=== PATIENT | female | born 1965 | race Caucasian/White ===

== ENCOUNTER 2017-04-15 22:18 | Emergency (ER) | payer BC ==
[~2017-04-15] VITALS: Ht 180.3 cm; Wt 113.8 kg
[~2017-04-15 22:18] MED LIST: CELEBREX200 MG PO; HYDROCHLOROTHIAZIDE PO; KADIAN30 MG PO; LYRICA PO; LYRICA150 MG PO; PERCOCET 7.5-31 EACH PO; PERCOCET 7.51 TABLET PO; PREDNISONE10 MG PO; SYNTHROID75 MCG PO; ZANAFLEX4 MG PO
[2017-04-15 22:59] LABS: HEMATOCRIT 41.5 % (36.0-46.0); MCH 29.8 PG (29.0-34.0); MCHC 33.3 G/DL (30.0-36.0); MCV 89.6 FL (83-99); MEAN PLAT.VOLUME 10.6 uM^3 (9.5-12.4); PLATELET COUNT 146 K/uL (156-360); RBC DIS.WIDTH-CV 13.8 % (11.8-14.6); RBC DIS.WIDTH-SD 45.6 % (39-53); RED BLOOD COUNT 4.63 M/uL (3.80-5.20); WHITE BLOOD COUNT 8.3 K/uL (4.1-10.2)
[2017-04-15 23:09] LABS: CHLORIDE 107 mEq/L (99-109); POTASSIUM 4.1 mEq/L (3.7-5.4); SODIUM 141 mEq/L (136-147)
[2017-04-15 23:11] LABS: GLUCOSE 109 mg/dL (70-99)
[2017-04-15 23:12] LABS: ANION GAP 13 MEQ/L (2-14)
[2017-04-15 23:13] LABS: TOTAL BILIRUBIN 0.3 mg/dL (0.0-1.0)
[2017-04-15 23:15] LABS: ALKALINE PHOSPHATASE 90 IU/L (3-129); GFR ESTIMATE (CALCULATED) > 59 mL/min/
[2017-04-15 23:16] LABS: UREA NITROGEN (BUN) 15 mg/dL (9-23)
[2017-04-15 23:40] LABS: LIPASE 14 U/L (1.0-51.0); QUANTITATIVE HCG < 4.0 MIU/ML
[2017-04-16 00:32] LABS: ADD MIUA? YES; BILIRUBIN NEGATIVE; BLOOD SMALL; COLOR YELLOW ((YELLOW)); GLUCOSE (STRIP) NEGATIVE; KETONES NEGATIVE; LEUKOCYTES SMALL; NITRITE POSITIVE; PROTEIN (STRIP) 30; SPECIFIC GRAVITY 1.019 (1.000-1.030); UROBILINOGEN 0.2 MG/DL (0.2-1.0)
[2017-04-16] MEDS ORDERED: PEPCID20 MG PO (00:44)
[2017-04-16] MEDS ORDERED: BACTRIM,SEPT1 TABLET PO (00:44)
[2017-04-16 00:51] LABS: BACTERIA 2+ /HPF; EPITHELIAL CELLS RARE /HPF; MUCUS TRACE /LPF; UCUL ADDED? YES; WHITE BLOOD CELLS 30-40 /HPF (0-5)
[2017-04-16 01:00] VITALS: BP 123/79
== END 2017-04-16 02:00 | disposition home or self-care (01) ==
LOC: EME 22:18
DX: R10.13 Epigastric pain (principal); N39.0 Urinary tract infection, site not specified; R19.7 Diarrhea, unspecified; E03.9 Hypothyroidism, unspecified; Z90.49 Acquired absence of other specified parts of digestive tract; Z90.710 Acquired absence of both cervix and uterus; Z79.891 Long term (current) use of opiate analgesic; F17.200 Nicotine dependence, unspecified, uncomplicated
CPT/HCPCS: 74176; 80053; 81003; 83690; 84702; 85027; 87077; 87086; 87186; 99281; 99285; J2270; J2405; J7030; S0028

== ENCOUNTER 2017-06-15 18:55 | Emergency (ER) | payer BC ==
[~2017-06-15] VITALS: Ht 180.3 cm; Wt 114.7 kg
[~2017-06-15 18:55] MED LIST changes: +BACTRIM,SEPT1 TABLET PO; +PEPCID20 MG PO
[2017-06-16 01:05] VITALS: BP 112/74
== END 2017-06-16 01:07 | disposition home or self-care (01) ==
LOC: EME 18:55
DX: R51 Headache (principal); R11.0 Nausea; E03.9 Hypothyroidism, unspecified; Z98.1 Arthrodesis status; F17.200 Nicotine dependence, unspecified, uncomplicated
CPT/HCPCS: 99281; 99284; J1100; J1200; J1630; J1885; J7030

== ENCOUNTER 2017-06-21 17:02 | Emergency (ER) | payer BC ==
[~2017-06-21] VITALS: Ht 180.3 cm; Wt 111.4 kg
[2017-06-21 17:50] LABS: EOSINOPHIL (%) 2.2 % (0-5); EOSINOPHIL COUNT 0.1 K/uL (0-0.3); HEMATOCRIT 42.6 % (36.0-46.0); IMMATURE GRANULOCYTE (%) 0.3 % (0.0-0.7); INSTRUMENT ABS NEUTROPHIL CT 4.4 K/uL; LYMPHOCYTE COUNT 1.5 K/uL (1.0-2.8); MCH 30.3 PG (29.0-34.0); MCHC 33.8 G/DL (30.0-36.0); MCV 89.5 FL (83-99); MEAN PLAT.VOLUME 11.2 uM^3 (9.5-12.4); MONOCYTE (%) 3.8 % (3-12); MONOCYTE COUNT 0.2 K/uL (0-0.8); NEUTROPHIL (%) 69.2 % (45-76); NEUTROPHIL COUNT 4.4 K/uL (1.8-6.4); PLATELET COUNT 177 K/uL (156-360); RBC DIS.WIDTH-SD 42.9 % (39-53); RED BLOOD COUNT 4.76 M/uL (3.80-5.20); WHITE BLOOD COUNT 6.3 K/uL (4.1-10.2)
[2017-06-21 17:56] LABS: ADD MIUA? YES; BILIRUBIN SMALL; BLOOD NEGATIVE; COLOR YELLOW ((YELLOW)); GLUCOSE (STRIP) NEGATIVE; KETONES NEGATIVE; LEUKOCYTES LARGE; NITRITE NEGATIVE; PROTEIN (STRIP) 30; SPECIFIC GRAVITY 1.021 (1.000-1.030)
[2017-06-21 18:00] LABS: CHLORIDE 106 mEq/L (99-109); POTASSIUM 3.9 mEq/L (3.7-5.4); SODIUM 138 mEq/L (136-147)
[2017-06-21 18:02] LABS: GLUCOSE 94 mg/dL (70-99)
[2017-06-21 18:04] LABS: ANION GAP 9 MEQ/L (2-14); TOTAL BILIRUBIN 0.7 mg/dL (0.0-1.0)
[2017-06-21 18:06] LABS: ALKALINE PHOSPHATASE 71 IU/L (3-129); GFR ESTIMATE (CALCULATED) > 59 mL/min/
[2017-06-21 18:07] LABS: UREA NITROGEN (BUN) 14 mg/dL (9-23)
[2017-06-21 18:09] LABS: LIPASE 6 U/L (1.0-51.0)
[2017-06-21 18:17] LABS: QUANTITATIVE HCG < 4.0 MIU/ML
[2017-06-21 18:20] LABS: BACTERIA RARE /HPF; EPITHELIAL CELLS 2+ /HPF; MUCUS 1+ /LPF; WHITE BLOOD CELLS TNTC /HPF (0-5)
[2017-06-21] MEDS ORDERED: OMEPRAZOLE40 M1 PO (18:47)
[2017-06-21 19:09] VITALS: BP 171/80
== END 2017-06-21 19:10 | disposition home or self-care (01) ==
LOC: EME 17:02
PROVIDERS: Physician Assistant
DX: K29.70 Gastritis, unspecified, without bleeding (principal); K27.9 Peptic ulcer, site unspecified, unspecified as acute or chronic, without hemorrhage or perforation; J45.909 Unspecified asthma, uncomplicated; E78.5 Hyperlipidemia, unspecified; E03.9 Hypothyroidism, unspecified; F17.200 Nicotine dependence, unspecified, uncomplicated
CPT/HCPCS: 74022; 80053; 81003; 83690; 84702; 85025; 87651 90; 99281; 99284

== ENCOUNTER 2017-11-06 22:44 | Emergency (ER) | payer BC ==
[~2017-11-06] VITALS: Ht 180.3 cm; Wt 105.3 kg
[~2017-11-06 22:44] MED LIST changes: +OMEPRAZOLE40 M1 PO
[2017-11-06 23:43] LABS: HEMATOCRIT 44.8 % (36.0-46.0); HEMOGLOBIN 15.3 G/DL (11.9-15.5); MCH 29.5 PG (29.0-34.0); MCHC 34.2 G/DL (30.0-36.0); MCV 86.5 FL (83-99); PLATELET COUNT 140 K/uL (156-360); RBC DIS.WIDTH-SD 40.9 % (39-53); RED BLOOD COUNT 5.18 M/uL (3.80-5.20); WHITE BLOOD COUNT 6.9 K/uL (4.1-10.2)
[2017-11-06 23:53] LABS: ALBUMIN 4.3 g/dL (3.2-4.8)
[2017-11-06 23:54] LABS: CHLORIDE 103 mEq/L (99-109); POTASSIUM 4.5 mEq/L (3.7-5.4); SODIUM 139 mEq/L (136-147)
[2017-11-06 23:56] LABS: GLUCOSE 137 mg/dL (70-99)
[2017-11-06 23:58] LABS: TOTAL BILIRUBIN 0.9 mg/dL (0.0-1.0)
[2017-11-06 23:59] LABS: ALKALINE PHOSPHATASE 92 IU/L (3-129)
[2017-11-07] LABS: CREATININE 0.7 mg/dL (0.6-1.3); GFR ESTIMATE (CALCULATED) > 59 mL/min/
[2017-11-07 00:01] LABS: AST (GOT) 15 IU/L (2-34); UREA NITROGEN (BUN) 27 mg/dL (9-23)
[2017-11-07 00:03] LABS: ALT (GPT) 18 IU/L (3-49)
[2017-11-07 02:01] LABS: ERTH.SED.RATE 23 MM/HR (0-30)
[2017-11-07 02:43] VITALS: BP 107/61
[2017-11-07] MEDS ORDERED: FIORICET,ESG1 TABLET PO (15:31)
== END 2017-11-07 02:43 | disposition home or self-care (01) ==
LOC: EME 22:44
PROVIDERS: Emergency Medicine
DX: R51 Headache (principal); G43.909 Migraine, unspecified, not intractable, without status migrainosus; J45.909 Unspecified asthma, uncomplicated; E78.5 Hyperlipidemia, unspecified; E03.9 Hypothyroidism, unspecified; Z98.1 Arthrodesis status; Z79.891 Long term (current) use of opiate analgesic; Z91.041 Radiographic dye allergy status; F17.200 Nicotine dependence, unspecified, uncomplicated
CPT/HCPCS: 70450; 80053; 85027; 85651; 99281; 99285; J1100; J1885; J2765; J7030

== ENCOUNTER 2017-11-07 14:08 | Emergency (ER) | payer BC ==
[~2017-11-07] VITALS: Ht 180.3 cm; Wt 105.3 kg
[2017-11-07] MEDS ORDERED: FIORICET,ESG1 TABLET PO (15:31)
[2017-11-07 15:48] VITALS: BP 154/74
== END 2017-11-07 15:49 | disposition home or self-care (01) ==
LOC: EME 14:08
DX: R51 Headache (principal); E78.5 Hyperlipidemia, unspecified; J45.909 Unspecified asthma, uncomplicated; E03.9 Hypothyroidism, unspecified; F17.200 Nicotine dependence, unspecified, uncomplicated; Z98.1 Arthrodesis status; Z90.49 Acquired absence of other specified parts of digestive tract; Z91.041 Radiographic dye allergy status
CPT/HCPCS: 87651 90; 99281; 99284; J1885

== ENCOUNTER 2017-11-21 12:38 | Emergency (ER) | payer BC ==
[~2017-11-21] VITALS: Ht 180.3 cm; Wt 100.0 kg
[~2017-11-21 12:38] MED LIST changes: +FIORICET,ESG1 TABLET PO
[2017-11-21 14:03] LABS: HEMOGLOBIN 13.6 G/DL (11.9-15.5); MCH 29.5 PG (29.0-34.0); MCHC 33.2 G/DL (30.0-36.0); MCV 88.9 FL (83-99); PLATELET COUNT 133 K/uL (156-360); RBC DIS.WIDTH-CV 13.6 % (11.8-14.6); RBC DIS.WIDTH-SD 43.9 % (39-53); RED BLOOD COUNT 4.61 M/uL (3.80-5.20); WHITE BLOOD COUNT 5.2 K/uL (4.1-10.2)
[2017-11-21 14:11] LABS: CHLORIDE 102 mEq/L (99-109); SODIUM 136 mEq/L (136-147)
[2017-11-21 14:13] LABS: GLUCOSE 87 mg/dL (70-99)
[2017-11-21 14:17] LABS: CREATININE 0.6 mg/dL (0.6-1.3); GFR ESTIMATE (CALCULATED) > 59 mL/min/
[2017-11-21 14:18] LABS: UREA NITROGEN (BUN) 18 mg/dL (9-23)
[2017-11-21 15:06] LABS: TROP-I INTERPRETATION NEGATIVE; TROPONIN-I < 0.01 ng/mL (0.0-0.30)
[2017-11-21 15:10] LABS: BILIRUBIN NEGATIVE; BLOOD NEGATIVE; COLOR YELLOW ((YELLOW)); GLUCOSE (STRIP) NEGATIVE; KETONES NEGATIVE; LEUKOCYTES NEGATIVE; NITRITE NEGATIVE; PROTEIN (STRIP) NEGATIVE; SPECIFIC GRAVITY 1.029 (1.000-1.030)
[2017-11-21 15:11] LABS: APPEARANCE CLEAR ((CLEAR)); UCUL ADDED? NO
[2017-11-21 15:57] VITALS: BP 139/80
== END 2017-11-21 16:03 | disposition home or self-care (01) ==
LOC: EME 12:38
PROVIDERS: Family Medicine
DX: R55 Syncope and collapse (principal); J45.909 Unspecified asthma, uncomplicated; E78.5 Hyperlipidemia, unspecified; G43.909 Migraine, unspecified, not intractable, without status migrainosus; E03.9 Hypothyroidism, unspecified; Z98.1 Arthrodesis status; F17.200 Nicotine dependence, unspecified, uncomplicated; Z91.041 Radiographic dye allergy status; Z79.891 Long term (current) use of opiate analgesic
CPT/HCPCS: 71046; 80048; 81003; 84484; 85027; 93005; 99281; 99284

== ENCOUNTER 2017-11-22 21:35 | Emergency (ER) | payer BC ==
[~2017-11-22] VITALS: Ht 180.3 cm; Wt 107.9 kg
[2017-11-22 23:24] LABS: HEMATOCRIT 41.6 % (36.0-46.0); HEMOGLOBIN 14.2 G/DL (11.9-15.5); MCHC 34.1 G/DL (30.0-36.0); MCV 87.9 FL (83-99); PLATELET COUNT 143 K/uL (156-360); RBC DIS.WIDTH-CV 13.4 % (11.8-14.6); RBC DIS.WIDTH-SD 43.4 % (39-53); RED BLOOD COUNT 4.73 M/uL (3.80-5.20); WHITE BLOOD COUNT 6.6 K/uL (4.1-10.2)
[2017-11-22 23:49] LABS: ALKALINE PHOSPHATASE 67 IU/L (3-129); ALT (GPT) 15 IU/L (3-49); AST (GOT) 14 IU/L (2-34); CHLORIDE 103 MEQ/L (99-109); CREATININE 0.7 MG/DL (0.6-1.3); GFR ESTIMATE (CALCULATED) > 59 mL/min/; GLUCOSE 93 mg/dL (70-99); POTASSIUM 3.8 MEQ/L (3.7-5.4); SODIUM 137 MEQ/L (136-147); TOTAL BILIRUBIN 0.3 MG/DL (0.0-1.0); TOTAL PROTEIN 6.1 G/DL (6.4-8.3); UREA NITROGEN (BUN) 15 mg/dL (9-23)
[2017-11-23 00:11] LABS: QUANTITATIVE HCG < 4.0 MIU/ML
[2017-11-23] MEDS ORDERED: KEFLEX500 MG PO (00:13)
[2017-11-23 00:24] VITALS: BP 153/107
== END 2017-11-23 00:24 | disposition home or self-care (01) ==
LOC: EME 21:35
PROVIDERS: Physician Assistant
DX: L03.113 Cellulitis of right upper limb (principal); I10 Essential (primary) hypertension; E03.9 Hypothyroidism, unspecified; Z91.041 Radiographic dye allergy status; Z98.1 Arthrodesis status
CPT/HCPCS: 80053; 84702; 85027; 99281; 99284